=== PATIENT | male | born 1970 | race African-American/Black ===

== ENCOUNTER 2023-02-02 09:55 | Outpatient (REF) | payer OTHER, SELFPAY ==
[2023-02-02 10:07] LABS: MANUAL DIFF FLAG NO
[2023-02-02 10:21] LABS: Basophils Percent Auto 0.6 % (0-2); Eosinophils Absolute Auto 0.2 X10*3/uL (0.0-0.4); Eosinophils Percent Auto 3.2 % (0-4); Hematocrit 42.8 % (42.0-52.0); Imm Gran Abs Auto 0.01 X10*3/uL (0.00-0.03); Imm Gran Pct Auto 0.2 % (0.0-0.4); Lymphocytes Absolute Auto 1.7 X10*3/uL (1.2-4.9); Lymphocytes Percent Auto 33.1 % (20-40); Mean Corpuscular HGB Conc 32.7 g/dl (31.0-36.0); Mean Corpuscular Volume 88.6 fL (80.0-98.0); Mean Platelet Volume 9.5 fL (9.4-12.4); Monocytes Absolute Auto 0.7 X10*3/uL (0.1-1.2); Monocytes Percent Auto 12.9 % (2-11); Neutrophils Absolute Auto 2.6 x10*3/uL (2.0-8.3); Platelet Count 244 X10*3/uL (160-400); Red Blood Count 4.83 X10*6/uL (4.60-5.80); Red Cell Distribution Width 13.1 % (11.0-16.0); White Blood Count 5.3 X10*3/uL (4.8-10.8)
[2023-02-02 10:56] LABS: Alanine Aminotransferase 45 U/L (0-40); Albumin Level 4.3 g/dL (3.5-5.0); Alkaline Phosphatase 83 U/L (39-117); Anion Gap 11 (12-20); Aspartate Amino Transferase 31 U/L (5-37); Bilirubin Total 0.5 mg/dL (0.0-1.0); Blood Urea Nitrogen 16 mg/dL (9-16); Calcium 9.4 mg/dL (8.4-10.2); Carbon Dioxide 26 mmol/L (22-29); Chloride 107 mmol/L (96-108); Cholesterol 198 mg/dL (<200); Estimated Glomerular Filt Rate 57; Glucose Fasting 108 mg/dL (60-99); HDL Cholesterol 40 mg/dL (>40); LDL Cholesterol Calculated 131 mg/dL (<100); Potassium 4.3 mmol/L (3.3-5.1); Sodium 140 mmol/L (135-145); Total Protein 7.5 g/dL (6.5-8.0); Triglycerides 137 mg/dL (<150)
[2023-02-02 11:19] LABS: Prostate Specific Antigen 0.86 ng/mL (<0.05-4.0)
== END 2023-02-02 09:56 | disposition home or self-care (01) ==
LOC: HO.LAB 09:55
PROVIDERS: PCP Internal Medicine; Visit Provider Internal Medicine
DX: E78.00 Pure hypercholesterolemia, unspecified (principal); J30.1 Allergic rhinitis due to pollen; Z12.5 Encounter for screening for malignant neoplasm of prostate
CPT/HCPCS: 36415; 80053; 80061; 84153; 85025

== ENCOUNTER 2024-06-08 11:09 | Outpatient (AMB) | payer OTHER, SELFPAY ==
--- NOTE | 2024-06-08 12:08 | AM.OFFWIN_ITS ---
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 Patient Tobacco Use Status: Never used Tobacco Allergies No Known Allergies [No Known Allergies*] Allergy (Unverified 06/08/24 12:10) Do you need a note to return to daycare/school/sports/work: No HPI HPI Comments History of Present Illness Details History of Present Illness - The patient is a 53-year-old male pres enting with a laceration of the finger due to an accidental cut last evening. - The patient incurred the injury while using a knife, which led to a portion of the fingertip being completely displaced. - The injury occurred recently and invol cheyanne the pad of the left thumb, specifically. Patient is right handed. - An attempt was made by the patient to reattach and bandage the displaced portion immediately following the incident. - The patient had his last Tdap immuniza tion in 2017, necessitating an update in his vaccination status. Physical Exam General: Cooperative, healthy appearing, comfortable, no acute distress and well developed Orientation: Patient oriented x3 Limitations: No limitations Head: Normal to inspection Ears: Hearing grossly normal bilaterally Nose: Normal External nose present Face and sinus: Normal facial exam Eyes: Appearance normal, both eyes and all related structures Neck: Normal visual inspection and Yes full ROM Respiratory: Normal respiratory effort and able to speak in complete sentences. Skin: No rashes or lesions noted Neuro: Patient oriented x3 Extremities: Normal to inspection, except left thumb pad has 0.5cm round complete avulsion with skin which has been placed back in place, that area is white, the rest has trace blood, no drainage noted, no erythema or other signs of infection noted. PFSH Social History Patient Tobacco Use Status: Never used Tobacco Review of Systems Const All systems reviewed & are unremarkable except as noted in HPI and below Physical Exam Vital Signs: Last Vital Signs Pulse 79 06/08/24 12:09 BP 140/80 H 06/08/24 12:09 Pulse Ox 98 06/08/24 12:09 Oxygen Delivery Method Room Air 06/08/24 12:09 Assessment & Plan Assessment & Plan (1) Laceration of skin of left thumb: Code(s): S61.012A - Laceration without foreign body of left thumb without damage to nail, initial encounter Qualifiers: Encounter type: initial encounter Qualified Code(s): S61.012A - Laceration without foreign body of left thumb without damage to nail, initial encounter Plan: Complete avulsion of skin on thumb, no nail involvement, tdap from 2017. Advised this area will slough off in the coming days as it is white, no blood flow. Instructions were provided on keeping the area clean and dry, applying antibiotic ointment to avert infection and monitoring for any signs of infection, such as drainage, redness, increasing pain or fever. Should these symptoms appear, the patient is to return for further assessment and potential antibiotic prescription. Supplies for adequate wound care were provided, ensuring the patient can manage the wound correctly at home. TDap given in office today. Patient was informed and verbally consented to the use of an ambient scribe for clinic note documentation during this visit. Orders: Orders TDaP Immunization Today S61.012A - Laceration without foreign body of left thumb without damage to nail, initial encounter Medications: New Boostrix Tdap (diphth,pertus(acell),tetanus) 0.5 mL IM ONCE 0.5 mL 0RF knife cut NS S61.012A - Laceration without foreign body of left thumb without damage to nail, initial encounter Coding Level of Care Code Est Pt Level 3 (83103) Diagnoses Laceration of skin of left thumb, initial encounter S61.012A Encounter type: initial encounter
[2024-06-08 12:09] VITALS: BP 140/80; PULSE 79; O2SAT 98
== END 2024-06-08 12:57 | disposition home or self-care (01) ==
PROVIDERS: PCP Internal Medicine; Visit Provider Physician Assistant
DX: S61.012A Laceration without foreign body of left thumb without damage to nail, initial encounter (principal)

== ENCOUNTER → 2024-06-08 11:09 | Outpatient (BNVA) | payer OTHER, SELFPAY | PROVIDERS: PCP Internal Medicine; Visit Provider Physician Assistant | DX: S61.012A Laceration without foreign body of left thumb without damage to nail, initial encounter (principal); W26.0XXA Contact with knife, initial encounter; Y93.9 Activity, unspecified; Y92.9 Unspecified place or not applicable; Y99.9 Unspecified external cause status | CPT/HCPCS: 90471; 90715 ==

== ENCOUNTER 2024-09-16 10:20 | Outpatient (AMB) | payer OTHER, SELFPAY ==
--- NOTE | 2024-09-16 10:18 | A.OFFPC_ITS ---
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 [facility] Medical History (Updated 09/16/24 @ 11:04 by Osman Galvez MD) Allergic rhinitis due to allergen Social History Patient Tobacco Use Status: Never used Tobacco Questionnaire PHQ-9 Over the last 2 weeks, how often have you been bothered by any of the following problems? 1. Little interest or pleasure in doing things: several days 2. Feeling down, depressed, or hopeless: not at all 3. Trouble falling or staying asleep, or sleeping too much: several days 4. Feeling tired or having little energy: several days 5. Poor appetite or overeating: not at all 6. Feeling bad about yourself - or that you are a failure or have let yourself or your family down: not at all 7. Trouble concentrating on things, such as reading the newspaper or watching television: not at all 8. Moving or speaking so slowly that other people could have noticed. Or the opposite - being so fidgety or restless that you have been moving around a lot more than usual: not at all 9. Thoughts that you would be better off or of hurting yourself in some way: not at all Total score: 3 Depression Screening Interpretation: Negative Depression Screening Done: Yes Source: Developed by Drs. Win L. GisselleMaty capone Kurt Kroenke a nd colleagues, with an educational josafat from [employer]. Thrive Questionnaire Date Thrive assessed: 09/16/24 I am a: Patient What is your living situation today?: I have a steady place to live Within the past 12 months, did the food you bought not last and you didn't have the money to get more?: Never true Within the past 12 months, did you worry whether your food would run out before you got money to buy more?: Never true Do you have trouble paying for medicines?: No Do you have trouble getting transportation to medical appointments?: No Do you have trouble paying your heating and electricity bill?: No Do you have trouble taking care of your child, family member or friend?: No Do you have trouble with day-to-day activities such as bathing, preparing meals, shopping, managing finances, etc.?: No Are you currently unemployed and looking for a job?: No Are you interested in more education?: No Currently or been in a relationship where the following occur: No concerns reported THRIVE Score: 0 KVNG-7 AMB Questionnaire KVNG-7 Date KVNG - 7 assessed: 09/16/24 Feeling nervous, anxious, or on edge: 0 = Not at all Not being able to stop or control worryin = Not at all Worrying too much about different things: 0 = Not at all Trouble relaxin = Not at all Being so restless that it is hard to sit still: 0 = Not at all Becoming easily annoyed or irritable: 1 = Several days Feeling afraid as if something awful might happen: 0 = Not at all Total KVNG-7 score (0-4 normal; 5-9 mild; 10-14 moderate; 15-21 severe): 1 Source: Developed by Drs. Win Pitts, Maty Chou, Martell Brown and colleagues, with an educational josafat from [employer]. Physical exam (Primary Care) Vital Signs: Last Vital Signs Temp 98.3 F 09/16/24 10:24 Pulse 80 09/16/24 10:24 Resp 16 09/16/24 10:24 BP 122/80 09/16/24 10:24 Pulse Ox 97 09/16/24 10:24 Oxygen Delivery Method Room Air 09/16/24 10:24 BMI result Body Mass Index 31.9 BMI Assessment/Plan discussion: High Tobacco/Smoking Status: Tobacco use Status Patient Tobacco Use Status Never used Tobacco 09/16/24 10:27 PHQ-9: PHQ-9 Score PHQ-9: Total score 3 09/16/24 10:36 Depression Screening Interpretation: Negative Thrive Assessment: Date of Thrive Assessment Date Thrive assessed 09/16/24 09/16/24 10:36 Currently or been in a relationship where the following occur: No concerns reported Const General: cooperative and healthy appearing Nutritional Appearance: well nourished Orientation/consciousness: patient oriented x3 Limitations: no limitations HENMT Head: Yes normal to inspection Eyes General: appearance normal, both eyes and all related structures Neck Neck: Yes normal visual inspection Chest Chest palpation & inspection: normal palpation of entire chest wall Resp Effort & Inspection: normal respiratory effort Neuro General: patient oriented x3 Coding Level of Care Code New Pt Prev Care 40-64y(31130) Diagnoses Allergic rhinitis due to allergen J30.9 Annual physical exam Z00.00 Assessment & Plan Assessment & Plan (1) Allergic rhinitis due to allergen: Code(s): J30.9 - Allergic rhinitis, unspecified Category: Medical Plan: Flonase ordered. (2) Annual physical exam: Code(s): Z00.00 - Encounter for general adult medical examination without abnormal findings Plan Screening colonoscopy ordered. Blood work ordered. Will call with the results. Orders: Orders Basic Metabolic Panel Today E78.5 - Hyperlipidemia, unspecified Complete Blood Count no Diff Today E78.5 - Hyperlipidemia, unspecified Lipid Panel Today E78.5 - Hyperlipidemia, unspecified Liver Panel Today E78.5 - Hyperlipidemia, unspecified Thyroid Stimulating Hormone Today E78.5 - Hyperlipidemia, unspecified UA and rflx microscopic Today E78.5 - Hyperlipidemia, unspecified Referrals Podiatry Referral B35.1 - Tinea unguium
[2024-09-16 10:22] VITALS: TEMP 36.3; BMI 31.9
[2024-09-16 10:24] VITALS: BP 122/80; PULSE 80; RESP 16; TEMP 36.8; O2SAT 97
== END 2024-09-16 11:02 | disposition home or self-care (01) ==
LOC: HO.HMCHD 10:20
PROVIDERS: PCP Internal Medicine; Visit Provider Internal Medicine
DX: J30.9 Allergic rhinitis, unspecified (principal); Z00.00 Encounter for general adult medical examination without abnormal findings

== ENCOUNTER 2024-11-25 11:01 | Outpatient (REF) | payer OTHER, SELFPAY ==
[2024-11-25 13:07] LABS: Appearance Urine Clear; Glucose Urine UA 250 mg/dL (Negative); PH 7.0 (5.0-9.0); Specific Gravity - Urine 1.010 (1.005-1.025)
[2024-11-25 13:16] LABS: Hematocrit 43.0 % (42.0-52.0); Hemoglobin 13.9 g/dl (14.0-18.0); Mean Corpuscular HGB Conc 32.3 g/dl (31.0-36.0); Mean Corpuscular Hemoglobin 28.6 pg (27.0-33.0); Mean Corpuscular Volume 88.5 fL (80.0-98.0); NRBC Abs Auto 0.000 X10*3/uL (0.0-0.012); NRBC Pct Auto 0.0 /100WBC (0.0-0.2); Platelet Count 228 X10*3/uL (160-400); Red Blood Count 4.86 X10*6/uL (4.60-5.80); White Blood Count 5.8 X10*3/uL (4.8-10.8)
[2024-11-25 13:40] LABS: Alanine Aminotransferase 48 U/L (0-40); Albumin Level 4.6 g/dL (3.5-5.0); Alkaline Phosphatase 87 U/L (39-117); Anion Gap 11 (12-20); Aspartate Amino Transferase 32 U/L (5-37); Blood Urea Nitrogen 13 mg/dL (9-16); Calcium 9.3 mg/dL (8.4-10.2); Carbon Dioxide 27 mmol/L (22-29); Chloride 104 mmol/L (96-108); Cholesterol 220 mg/dL (<200); Estimated Glomerular Filt Rate > 60; HDL Cholesterol 40 mg/dL (>40); Potassium 4.4 mmol/L (3.3-5.1); Sodium 138 mmol/L (135-145); Total Protein 7.5 g/dL (6.5-8.0); Triglycerides 188 mg/dL (<150)
[2024-11-25 13:49] LABS: Thyroid Stimulating Hormone 1.15 uIU/mL (0.32-4.0)
== END 2024-11-25 11:02 | disposition home or self-care (01) ==
LOC: HO.10HDL 11:01
PROVIDERS: Visit Provider Internal Medicine
DX: E78.5 Hyperlipidemia, unspecified (principal)
CPT/HCPCS: 36415; 80048; 80061; 80076; 81003; 84443; 85027

== ENCOUNTER 2025-01-27 10:26 | Outpatient (AMB) | payer OTHER, SELFPAY ==
--- NOTE | 2025-01-27 10:51 | A.OFFVIS_ITS ---
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 Referred by PCP for pre colonoscopy screening. This will be Timi's initial colonoscopy and denies any prior CRC screening. He reports having one to two bowel movements daily, with complete evacuation and ease of passage. Appetite is reported as stable, and weight in the low 200s has remained consistent. No symptoms suggestive of upper or lower gastrointestinal pathology. Medical review reveals mildly elevated liver enzymes and cholesterol, as well as slight increase in fasting glucose, noted on laboratory testing from November. No other significant comorbid medical therapy appears to be ongoing. Patient denies: fever/chills, n/v, appetite changes, pyrosis, regurgitation,dysphasia, unintentional wt loss, ab pain or melena/hematochezia. Social hx: -ETOH use 2?3 glasses wine/week, socially -denies recreational drug use -non-smoker - family hx as below -denies personal hx of CA -denies significant cardiopulmonary history -no prior sedation/anesthesia history. PFSH Medical History (Updated 01/27/25 @ 11:25 by Shonda Up CNP) Hyperlipemia Elevated LFTs Colon cancer screening Allergic rhinitis due to allergen Family History (Updated 01/27/25 @ 10:54 by Rosie Burton) Father HTN (hypertension) Mother HTN (hypertension) Heart disease Social History (Updated 01/27/25 @ 10:52 by Rosie Burton) Household Members: Family Alcohol intake: current Alcohol intake frequency: holidays/special occasions only Patient Tobacco Use Status: Never used Tobacco Use of substances other than those prescribed or required for medical reasons: No Review of Systems Const Reports as per HPI ENT Reports as per HPI Card Reports as per HPI Resp Reports as per HPI GI Reports as per HPI Reports as per HPI Physical Exam Vital Signs: Last Vital Signs Pulse 77 01/27/25 10:54 BP 128/79 01/27/25 10:54 BMI result Body Mass Index 32.6 Const General: healthy appearing, no acute distress and well developed Nutritional Appearance: average body habitus Orientation/consciousness: patient oriented x3 HEENT Head: Yes normal to inspection, Yes normocephalic and Yes atraumatic Face and sinus: Yes normal facial exam Eyes General: appearance normal, both eyes and all related structures Neck Neck: Yes normal visual inspection Resp Effort & Inspection: normal respiratory effort, able to speak in complete sen tences, no tracheal deviation and symmetric chest movement Cardio Jugular venous distension: no JVD Neuro General: patient oriented x3 Gait exam (Neuro): Normal gait present Psych Appearance: grossly normal Mental Status: mental status grossly normal Speech and movement: Normal speech and movement present Affect: normal affect Attitude: cooperative Thought process: Normal thought process present Thought content: Normal thought content present Insight: Good insight present (Psych) Judgement: Good judgement present (Psych) Assessment & Plan Assessment & Plan (1) Colon cancer screening: Code(s): Z12.11 - Encounter for screening for malignant neoplasm of colon Category: Medical Plan: Due for index screening colonoscopy. No alarm features. Medications: -prescriptions for laxative tablets and MiraLax sent to pharmacy; instructions for Gatorade purchase and clear liquid diet given. Patient educated on scheduling process, procedure preparation, including avoiding certain foods and ensuring clear liquid intake Advised on necessity for ride post-procedure due to sedation. (2) Elevated LFTs: Code(s): R79.89 - Other specified abnormal findings of blood chemistry Category: Medical Plan: Mild, persistent elevation in liver enzymes and cholesterol; risk factors present (BMI, hyperlipidemia, fasting glucose) Additional Testing: Monitor LFTs and lipid panel as clinically indicated; communicate recent results to PCP prior to next scheduled follow-up Medication Management: None specifically for liver, see recommendations below Lifestyle Recommendations: Emphasize [id number] diet, minimize processed foods, increase physical activity; weight management if indicated Follow-Up: Routine PCP visit currently scheduled for September next year; advised to message PCP to discuss recent lab trends and possible medication needs (3) Hyperlipemia: Code(s): E78.5 - Hyperlipidemia, unspecified Category: Medical Qualifiers: Hyperlipidemia type: mixed hyperlipidemia Qualified Code(s): E78.2 - Mixed hyperlipidemia Plan: Elevation in total and LDL cholesterol on serial labs; family history of heart disease Additional Testing: Repeat lipid panel as indicated; coordinate with PCP for ongoing monitoring Medication Management: No pharmacologic therapy initiated at this time; recommend discussion with PCP regarding possible initiation of lipid-lowering therapy Lifestyle Recommendations: Dietary modification to reduce saturated fat and processed foods; increase physical activity; weight management as appropriate Follow-Up: Discuss with PCP prior to next scheduled visit; reassess need for medication based on updated labs and risk profile Plan Follow up as needed Time: I spent a total of 30 minutes on the date of encounter which includes: Preparing to see the patient (reviewed previous documentation, test results and medical history) Performing a medically appropriate exam and/or evaluation Ordering medications, tests, and procedures Documenting clinical information in the health record Orders: Referrals GI Procedure Notification Z12.11 - Encounter for screening for malignant neoplasm of colon Medications: New bisacodyl take four tablets once day of colonoscopy prep 20 mg (4 x 5 mg) PO ONCE 4 tabs 0RF polyethylene glycol 3350 (Miralax) per colonoscopy prep instructions 238 grams PO ONCE 238 grams 0RF Coding Level of Care Code New Pt New Pt Level 3 (94621) Patient Type New Diagnoses Colon cancer screening Z12.11 Elevated LFTs R79.89 Mixed hyperlipidemia E78.2 Hyperlipidemia type: mixed hyperlipidemia
[2025-01-27 10:54] VITALS: BP 128/79; PULSE 77; BMI 32.6
== END 2025-01-27 11:12 | disposition home or self-care (01) ==
LOC: HO.HGI 10:27
PROVIDERS: PCP Internal Medicine; Visit Provider Nurse Practitioner Family
DX: Z01.818 Encounter for other preprocedural examination (principal); Z12.11 Encounter for screening for malignant neoplasm of colon; R74.01 Elevation of levels of liver transaminase levels; E78.2 Mixed hyperlipidemia
CPT/HCPCS: S0285

== ENCOUNTER 2025-02-05 07:58 | Outpatient (REF) | payer OTHER, SELFPAY ==
--- OUTSIDE RECORDS SUMMARY | 2025-02-03 04:30 | XMS_ITS ---
Author Organization [facility] mackey [place] Address [address] [place] [address] Care Team Providers Care Delicatessen Department Manager Name Role Phone LennyOsman chavis Primary Care Provider [phone] Celsa Phillips Unavailable [phone] Allergies Allergen (clinical drug ingredient) Drug/Non Drug Allergy documented on EMR Reaction Allergy Type Onset Date Status seasonal allergies (uncoded) Unknown Allergy Active REASON FOR VISIT Painful Nail(s) Medications Medication SIG (Take, Route, Fr equency, Duration) Notes Start Date End Date Status Terbinafine HCl 250 MG 1 tablet Orally O nce a day; Duration: 30 days Active Social History Tobacco Use: Social History Observation Description Date Details (start date - stop date) Never Smoker NA - NA Tobacco use other than smoking: Question Answer Notes Are you an other tobacco user? No Tobacco Control (Standard) Question Answer Notes Tobacco use: Nonsmoker Additional Findings: Tobacco non-user Current no nsmoker AUDIT-C (Standard) Question Answer Notes Did you have a drink contain ing alcohol in the past year? Yes How often did you have a dri nk containing alcohol in the past year? Declined to specify (0 point) How many drinks did you have on a typical day when you were drinking in the past year? Declined to specify (0 point) How often did you have six o r more drinks on one occasion in the past year? Declined to specify (0 point) Points 0 Interpretation Negative Vital Signs Height 5FT 7IN in 02/03/2025 Weight 205 lbs 02/03/2025 BMI 32.1 kg/m2 02/03/2025 Blood pressure systolic 128 mm Hg 02/04/20 25 Blood pressure diastolic 65 mm Hg 025 Encounters Encounter Location Date Provider Diagnosis [facility] [address] [place] [address] 02/03/2025 Celsa Phillips Pain in right toe(s) M79.674 ; Onychomycosis B35.1 and Pain in left toe(s) M79.675 Assessments Encounter Date Diagnosis (ICD Code) Assessment Notes Treatment Notes Treatment Clinical Notes Section Notes 02/03/2025 Pain in right toe(s) (ICD-10 - M79.674) 02/03/2025 Onychomycosis (ICD-10 - B35.1) 02/03/2025 Pain in left toe(s) (ICD-10 - M79.675) Plan Of Treatment Medication Medication Name Sig Start Date Stop Date Notes Terbinafine HCl 250 MG 1 tablet Orally O nce a day; Duration: 30 days Pending Test Test Name Order Date *Liver Function Test (LFT) 02/03/2025 Next Appt Details Follow Up: 2-3 Months, Reaso n: Provider Name:Celsa faulkner, 05/12/2025 08:30:00 AM, [address] [place] [address], [id number], Progress Notes * Timi RODRIGUEZDOB:1970 (54 yo M)Acc No.[id number]:02/03/2025 Progress Notes Patient: Timi HORNER Provider: No Phillips DPM :1970 A ge:54 Y S ex:Male Date:02/03/2025 Address:[address] [place], [place] [id number] Pcp:Osman Galvez Subjective: * Chief Complaints: * P ainful Nail(s) * HPI: P ainful Nails: Nature: a fritz, tender, discolored, thick. Location: B oth feet. Duration: s everal years. Course: w orse. Aggravated by: s hoegear causing difficulty standing/walking. Treatments: O TC Topical Antifungal, relates adherence to recom tx, was not successful. * ROS: G eneral/Constitutional: Nausea d enies. V omiting d enies. H gary Thirst d enies. L oss appetite d enies. C hills d enies. F atigue d enies.?Fever d enies. N ight Sweats d enies. U nexplained weight loss d enies. U nexplained weight gain d enies. H EENTM: Dentures d enies. D izziness d enies. G lasses/contacts a dmits. R etinopathy d enies. B lurred/double vision d enies. T MJ?denies. D ischarge/drainage d enies. I mplants d enies. S ore throat d enies. D ental implants d enies. H lien of hearing d enies. D ifficulty chewing/swallowing/speaking d enies. N ose bleeds d enies. S ore mouth d enies. ? R espiratory: On Oxygen d enies. P neumonia/pleurisy d enies.?Bronchitis d enies. E mphysema d enies. C oughing d enies. C ough blood?denies. S hortness of breath d enies. W heezing d enies. C ardiovascular: Pacemaker d enies. M ENDBAND CUTTER HAND d enies. W PW d enies. C HF d enies. H eart attack d enies. S eptal defect d enies. R apid beat d enies. C hest pain d enies. A trial Fib. d enies. M urmur/Palpitations d enies. G astrointestinal: Hemorrhoids d enies. S tomach/Abdominal pain d enies. D ark blood stool d enies. I rritable bowel d enies. C onstipation d enies. D iarrhea d enies. H ematology: Swelling d enies. C lots d enies. V aricose Veins d enies. B ruising d enies. B leeding problem d enies. G enitourinary: Blood urine d enies. F requent/Painfu/urination/bladder control d enies. K idney stones d enies. I nfection (UTI) d enies. N ephropathy d enies. s ex trans dis (STD) d enies. P rostate d enies. M usculoskeletal: Hammertoes d enies. B unions d enies. B ack Pain d enies. M uscle Cramps/ Resting d enies. M uscle cramps / walking d enies.?Generalized aches and pains d enies. W eakness d enies. I nteg.: Robert d enies. S cars d enies. C orns/calluses?denies. I ngrown nails d enies. P ainful nails a dmits. O pen Sores d enies. R ashes d enies. N eurologic: Difficulty sleeping d enies. B rain disorder d enies. N umbness d enies. B alance trouble d enies. C onfusion d enies. F ainting/blackouts d enies. T ingling d enies. T remors d enies. * Medical History: * Surgical History: D enies Past Surgical History * Hospitalization/Major Diagno stic Procedure: D enies Past Hospitalization * Family History: M other: alive, diagnosed with Unspecified essential hypertension. F ather: , diagnosed with Unspecified essential hypertension. S iblings: diagnosed with Unspecified essential hypertension. * Social History: T obacco Use: T obacco use other than smoking A re you an other tobacco user? N o Tobacco Control (Standard) T obacco use: N onsmoker A dditional Findings: Tobacco non-user C urrent nonsmoker D rugs/Alcohol: D rugs H ave you used drugs other than those for medical reasons in the past 12 months? N o M iscellaneous: C affeine: yes, 24 OZ per day. Exercise: yes, reffing 3-4 days per week. Marital status: . 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 D rug/Alcohol: A LAKIA-C (Standard) D id you have a drink containing alcohol in the past year? Y es H ow often did you have a drink containing alcohol in the past year? D eclined to specify (0 point) H ow many drinks did you have on a typical day when you were drinking in the past year? D eclined to specify (0 point) H ow often did you have six or more drinks on one occasion in the past year? D eclined to specify (0 point) P oints 0 I nterpretation N egative * Medications: N one * Allergies: s easonal allergiesyes[Allergies Verified] Objective: * Vitals: H t:5FT 7IN, Wt:205, BMI:32.1, Shoe size:8.5, BP:128/65mm Hg, Ht-cm: 170.18 cm, Wt-k.99 kg. * Examination: N ails: NAILS are: E longated, overgrown, dystrophic, lytic, greater than 3mm thick, discolored and friable with crumbly malodorous subungual debris, with pain on palpation , TA, T1, T2, T3, T4, T5, T6, T7, T8, T9. G eneral Examination: GENERAL APPEARANCE: R ramaeals a pleasant, alert, well-nourished, well-developed, well hydrated individual, who demonstrates proper attention to hygiene/body habitus, and is in no acute distress, Pt serves as own h istorian for office visit today. ORIENTED: p erson, place, and time. N eurological: SENSORY: N eurological exam reveals intact sensorium, pain sensation normal, vibration sensation intact, pinprick sensation is normal in the lower extremities, Pt denies, anesthesia, burning, paresthesia, tingling, B/L. DEEP TENDON REFLEXES: A chilles, 2/4, B/L. V ascular: DP PULSES (B): 3 /4, B/L. PT PULSES (B): 3 /4, B/L. CAPILLARY FILL TIME: i mmediate, all digits, B/L. TROPHIC CONDITION-TEXTURE/ELASTICITY/TURGOR/HAIR GROWTH (B):?normal, B/L. TEMPERTURE GRADIENT (C): w arm to cool, proximal to distal, B/L. PIGMENTATION: n ormal, B/L. EDEMA (C): a bsent, B/L. D ermatologic: SKIN FINDINGS: S kin exam reveals normal texture, elasticity, and turgor. There are no masses. The interspaces are clear. O rthopedic: MUSCLE STRENGTH: 5 /5 all groups in a symmetrical fashion , B/L. Assessment: * Assessment: 1. P ain in right toe(s) - M79.674 2 . O nychomycosis - B35.1 (Primary)? Specify :Acute problem, Complicated w/ Multiple Tx Options(4) 3 . P ain in left toe(s) - M79.675 Plan: * Treatment: * Procedure Codes: * Preventive Medicine: Counseling: D iscussion: - 04: Office or other outpatient visit for the evaluation and management of a new patient, which required a medically appropriate history and/or examination and MODERATE level of DECISION MAKING for: 1 OR MORE CHRONIC PROBLEM(S) THATS WORSENING, 2 STABLE CHRONIC PROBLEMS, A NEWLY DIAGNOSED PROBLEM WITH UNCERTAIN PROGNOSIS, AN ACUTE COMPLICATED INJURY WITH MULTIPLE TREATMENT OPTIONS, OR AN ACUTE PROBLEM WITH ACCOMPANYING SYSTEMIC SYMPTOMS, THAT POSE(S) A MODERATE RISK OF MORBIDITY. THIS CONDITION MAY ALSO INCLUDE RX DRUG MANAGEMENT, OR A DECISON FOR MINOR SURGERY. The visit on the day of the encounter encompassed interpreting the data and educating the patient as to the nature of their condition, treatment options available according to their individual PMH, meds, allergies, and overall health/living conditions, as well as any potential risks or complications that may occur from a failure to adhere to, and participate in, the recommended course of therapy. The discussion included a complete verbal, and/or written explanation of the examination results, any x- rays taken, the proposed diagnosis, and outline of the treatment plan. A schedule for future care needs was also explained. The patient verbalized an understanding of the instructions at this time and agreed to be an active participant in their treatment. If the patient should think of any questions or concerns after the visit, I have encouraged the patient to call the office. F ungal Nail Counseling: T he patient was counseled on the diagnosis, potential etiologies (including, but not limited to, environmental factors, genetic, immune deficiency), and the multiple treatment options for Onychomycosis. We discussed the risks and benefits of each option from performing no treatment, to ultraviolet light shoe treatment, to laser nail treatment, to applying topical antifungals, to taking oral antifungal medication, to surgical removal of the involved nail(s) with or without performing a matricectomy, or any combination thereof. We discussed the advantages and disadvantages of each of possible treatment and importance for adherence to all the recommended therapies for optimum success. This includes the necessity for weekly emery board self nail home debridements, and control the nail and skin environment as much as possible by only using a fresh, dry pair of shoes/socks each day, as well as keeping the skin as dry as possible through the use of sprays/powders if necessary. The patient was instructed to discard the emery board after use to prevent reinfection of the involved nail(s). We discussed the mycological and visual clinical effectiveness of topical vs oral antifungal treatments as well as each ones potential side effects and/or any patient-specific medication interactions. We discussed the reasons behind the important requirement of regular liver function testing with oral antifungal therapy for safety. Patient questions regarding use, dosage, successful outcomes, blood tests, and possible pharmaceutical interactions were reviewed and the patient verbalized that all answers were clearly understood. Screening/Special Tests: F all Risk Screening: N o falls in the past year F ALLS: Screening for Future Fall Risk Have you had any falls with injury in the past year? N o * Follow Up: 2 -3 Months * Images: * Sign off status: Completed true * Provider: No Phillips DPM Date: 04/05/2024 Generated for Maria Luisa jerry/Farideh/Agustina on: 04/07/2024 08:00 AM EST History and Physical Notes * HPI (History of Present Illness) Category Sub-Category Detail Notes Category Not es Painful Nails Aggravated by: shoegear causing difficulty standing/walking Course: worse Duration: several years Location: Both feet Nature: aching, tender, disc olored, thick Treatments: OTC Topical Antifung al, relates adherence to recom tx, was not successful Examination Category Sub-Category Detail Notes Category Not es Neurological SENSORY: Neurological exa m reveals intact sensorium, pain sensation normal, vibration sensation intact, pinprick sensation is normal in the lower extremities, Pt denies, anesthesia, burning, paresthesia, tingling, B/L DEEP TENDON REFLEXES: Achilles, 2/4, B/L Dermatologic SKIN FINDINGS: Skin exam reveal s normal texture, elasticity, and turgor. There are no masses. The interspaces are clear Orthopedic MUSCLE STRENGTH: 5/5 all groups in a symm etrical fashion , B/L General Examination GENERAL APPEARANCE: Reveals a pleasant, alert, well- nourished, well-developed, well hydrated individual, who demonstrates proper attention to hygiene/body habitus, and is in no acute distress, Pt serves as own historian for office visit today ORIENTED: person, place, and t [facility] DP PULSES (B): 3, B/L PT PULSES (B): 3/4, B/L CAPILLARY FILL TIME: immediate, all digi ts, B/L TEMPERTURE GRADIENT (C): warm to cool, p roximal to distal, B/L TROPHIC CONDITION-TEXTURE/ELASTICITY/TURGOR/HAIR GROWTH (B): normal, B/L EDEMA (C): absent, B/L PIGMENTATION: normal, B/L Nails NAILS are: Elongated, overg rown, dystrophic, lytic, greater than 3mm thick, discolored and friable with crumbly malodorous subungual debris, with pain on palpation , TA, T1, T2, T3, T4, T5, T6, T7, T8, T9
--- OUTSIDE RECORDS SUMMARY | 2025-02-05 08:00 | XMS_ITS | Patient Health Record ---
Author Organization [facility] Address [address] [facility] [place] [address] Care Team Providers Care Marine Equipment Preservation Inspector Name Role Phone Lenny, Kartik Primary Care Provider [phone] Celsa Phillips Unavailable [phone] Allergies Allergen (clinical drug ingredient) Drug/Non Drug Allergy documented on EMR Reaction Allergy Type Onset Date Status seasonal allergies (uncoded) Unknown Allergy Active Reason For Referral No Information Medications Medication SIG (Take, Route, Fr equency, Duration) Notes Start Date End Date Status Terbinafine HCl 250 MG 1 tablet Orally O nce a day; Duration: 30 days Active Immunizations Vaccine Route Administration Date Status Comme nts Influenza Unknown 12/18/2024 Administered Social History Tobacco Use: Social History Observation [...] point) Points 0 Interpretation Negative Vital Signs Blood pressure diastolic 65 mm Hg 02/03/2025 Height 5FT 7IN in 02/03/2025 Blood pressure systolic 128 mm Hg 02/03/2025 Weight 205 lbs 02/03/2025 BMI 32.1 kg/m2 02/03/2025 Encounters Encounter Location Date Provider Diagnosis [facility] [address] [place] [address] 02/03/2025 Celsa Phillips Pain in right toe(s) M79.674 ; Onychomycosis B35.1 and Pain in left toe(s) M79.675 Assessments Encounter Date Diagnosis (ICD Code) Assessment Notes Treatment Notes Treatment Clinical Notes Section Notes 02/03/2025 Pain in right toe(s) (ICD-10 - M79.674) 02/03/2025 Onychomycosis (ICD-10 - B35.1) 02/03/2025 Pain in left toe(s) (ICD-10 - M79.675) Plan Of Treatment Pending Test Test Name Order Date *Liver Function Test (LFT) 02/03/2025 Next Appt Details Provider Name:Celsa faulkner, 05/12/2025 08:30:00 AM, [address] [place], [address], Insurance Providers Payer Name Payer Address Payer Phone Subscriber Number Group Number Insured Name Patient Relationship to Insured Coverage Start Date Coverage End Date [employer] [address] [place] [address] [id number] Jannette Loaiza Spouse - patient is the spouse of the insured Medical (General) History Medical History History ICD Code covid-19 Sciatica Chicken pox
[2025-02-05 10:38] LABS: Alanine Aminotransferase 48 U/L (0-40); Albumin Level 4.7 g/dL (3.5-5.0); Alkaline Phosphatase 81 U/L (39-117); Aspartate Amino Transferase 34 U/L (5-37); Total Protein 7.5 g/dL (6.5-8.0)
== END 2025-02-05 07:59 | disposition home or self-care (01) ==
LOC: HO.10HDL 07:58
PROVIDERS: Visit Provider Student in an Organized Health Care Education/Training Program
DX: B35.1 Tinea unguium (principal)
CPT/HCPCS: 36415; 80076